=== PATIENT | female | born 1980 | race Caucasian/White ===

== ENCOUNTER 2016-10-13 08:45 | Outpatient (CLI) | payer OTHER ==
--- NOTE | 2016-10-13 10:41 | DIAGNOSTIC IMAGING REPORT ---
PROCEDURE: US COMPLETE PELVIC W/TRANSVAG INDICATION: MENORRHAGIA TECHNIQUE: Transabdominal and endovaginal boucher scale and color Doppler sonographic images of the female pelvis were obtained. COMPARISON: None. FINDINGS: TRANSABDOMINAL SCANS: Retroverted uterus. Normal kidneys. Incidental note made of a 1.8 cm slightly echogenic liver mass, possibly a hemangioma. TRANSVAGINAL SCANS: The uterus measures 9.3 x 4.4 x 5.4 cm. Myometrium is unremarkable. Endometrium measures 15 mm. Left ovary measures 3.1 x 2.0 x 1.7 cm with a 1.6 cm corpus luteum cyst. Right ovary measures 3.6 x 1.4 x 1.8 cm with a 1.8 cm corpus luteum cyst and a small amount of adjacent free fluid. There is vascular flow to both ovaries. IMPRESSION: 1. Bilateral ovarian corpus luteum cysts with a small amount of free fluid around the left ovary 2. Retroverted uterus
== END 2016-10-13 23:00 ==
LOC: US SRH 08:45
DX: N83.12 Corpus luteum cyst of left ovary (principal); N83.11 Corpus luteum cyst of right ovary; N85.4 Malposition of uterus